=== PATIENT | male | born 2000 | race Caucasian/White ===

== ENCOUNTER 2020-03-03 17:02 | Emergency (ER) | payer MEDICAID ==
[~2020-03-03] VITALS: Ht 182.9 cm; Wt 126.6 kg
[2020-03-03 17:10] VITALS: Ht 182.9 cm; Wt 126.6 kg
[2020-03-03 17:51] VITALS: BP 122/63
== END 2020-03-03 17:53 | disposition home or self-care (01) ==
LOC: ED 17:02
DX: H61.23 Impacted cerumen, bilateral (principal)